=== PATIENT | female | born 1955 | race Caucasian/White ===

== ENCOUNTER 2022-03-17 19:35 | Emergency (ER) | payer OTHER ==
[~2022-03-17] VITALS: Ht 167.6 cm; Wt 68.0 kg
[2022-03-18] MEDS ORDERED: CEFD300 PO (00:25)
== END 2022-03-18 01:08 | disposition home or self-care (01) ==
LOC: ER 19:35
DX: N12 Tubulo-interstitial nephritis, not specified as acute or chronic (principal)
CPT/HCPCS: A9270; J1885